=== PATIENT | female | born 1960 ===

== ENCOUNTER 2018-07-15 20:57 | Emergency (ER) | payer MEDICARE ==
[2018-07-15 21:17] VITALS: RESP 16; O2SAT 98
--- NOTE | 2018-07-15 22:17 | ED PDOC ---
HPI: Head Injury Time Seen by Provider: 07/15/18 21:21 Chief Complaint (Nursing): Trauma Chief Complaint (Provider): Head Injury History Per: Patient History/Exam Limitations: no limitations Injury Occurred (Timing): Today @ (163) Patient States: Struck With Object Additional Complaint(s): 58 year old female with hx of diabetes, HTN, and CVA present to the ED for bertha luation of a head injury. Patient states that around 0 today, an iron bar from a shelving unit fell and struck the top of her head. Initially, she notes applying ice and now there is localized pain to the area. Denies loss of consciousness, dizziness, nausea, and vomiting. PMD: Kemar Ram Past Medical History Reviewed: Historical Data, Nursing Documentation, Vital Signs Vital Signs: Last Vital Signs Temp 98.1 F 07/15/18 21:15 Pulse 76 07/15/18 21:15 Resp 16 07/15/18 21:15 BP 167/75 H 07/15/18 21:15 Pulse Ox 98 07/15/18 21:15 - Medical History PMH: CVA, Diabetes, HTN, Hypercholesterolemia - Surgical History Surgical History: (x3) - Family History Family History: States: Unknown Family Hx - Social History Current smoker - smoking cessation education provided: No Alcohol: None Drugs: Denies - Home Medications Home Medications: Ambulatory Orders Medication Instructions Recorded Atorvastatin [Lipitor] 10 mg PO DAILY 02/25/15 Cyanocobalamin/Folic AC/Vit B6 1 tab PO DAILY 02/25/15 [Folplex 2.2 Tablet] Famotidine 20 mg PO BID 02/25/15 Gabapentin [Neurontin] 400 mg PO TID 02/25/15 Gemfibrozil [Lopid] 600 mg PO BID 02/25/15 Meloxicam [Mobic] 15 mg PO DAILY 02/25/15 Metoprolol Succinate XL [Toprol XL] 100 mg PO DAILY 02/25/15 Valsartan/Hydrochlorothiazide 1 tab PO DAILY 02/25/15 [Valsartan-Hctz 80-12.5 mg Tab] Aspirin [Ecotrin] 81 mg PO DAILY #0 tabec 02/27/15 - Allergies Allergies/Adverse Reactions: Allergies Allergy/AdvReac Type Severity Reaction Status Date / Time butorphanol [From Stadol] Allergy SHORTNESS Verified 07/15/18 21:15 OF BREATH cortisone Allergy SWELLING Verified 07/15/18 21:15 diphenhydramine Allergy DIZZINESS Verified 07/15/18 21:15 [From Benadryl] ibuprofen Allergy FATIGUE Verified 07/15/18 21:15 metformin Allergy RASH Verified 07/15/18 21:15 shrimp Allergy RASH Verified 07/15/18 21:15 tramadol Allergy RASH Verified 07/15/18 21:15 Review of Systems ROS Statement: Except As Marked, All Systems Reviewed And Found Negative Constitutional: Positive for: Other (head injury) Gastrointestinal: Negative for: Nausea, Vomiting Neurological: Negative for: Dizziness, Other (loss of consciousness) Physical Exam - Reviewed Nursing Documentation Reviewed: Yes Vital Signs Reviewed: Yes - Physical Exam Appears: Positive for: No Acute Distress Head Exam: Positive for: ATRAUMATIC (but some tenderness to left temporal parietal region with mild swelling), NORMOCEPHALIC Skin: Positive for: Normal Color, Warm, Dry Eye Exam: Positive for: Normal appearance, EOMI, PERRL ENT: Positive for: Normal ENT Inspection Neck: Positive for: Normal, Painless ROM, Supple Cardiovascular/Chest: Positive for: Regular Rate, Rhythm Respiratory: Positive for: Normal Breath Sounds. Negative for: Accessory Muscle Use, Respiratory Distress Gastrointestinal/Abdominal: Positive for: Normal Exam, Soft. Negative for: Tenderness Extremity: Positive for: Normal ROM Neurologic/Psych: Positive for: Alert, Oriented (x3). Negative for: Motor/Sensory Deficits - ECG O2 Sat by Pulse Oximetry: 98 (RA) Pulse Ox Interpretation: Normal Medical Decision Making Medical Decision Making: Time: 2133 Initial Impression: 58 year old female with a head injury Initial Plan: --CT head without contrast 2244 CT head shows no intracranial abnormalities. Pt is stable for d/c with diagnosis of minor head injury and contusion. Scribe Attestation: Documented by Maricruz Tomas, acting as a scribe for Blas Marrero MD. Provider Scribe Attestation: All medical record entries made by the Scribe were at my direction and personally dictated by me. I have reviewed the chart and agree that the record accurately reflects my personal performance of the history, physical exam, medical decision making, and the department course for this patient. I have also personally directed, reviewed, and agree with the discharge instructions and disposition. Disposition - Clinical Impression Clinical Impression: Contusion of head - Patient ED Disposition Is Patient to be Admitted: No Counseled Patient/Family Regarding: Studies Performed, Diagnosis - Disposition Disposition: Routine/Home Disposition Time: 22:47 Condition: STABLE Instructions: Minor Head Injury Forms: [facility] (Upper Sorbian) Print Language: L[place]BOURGISH
[2018-07-15 23:09] VITALS: BP 140/69; PULSE 80; TEMP 98.3
--- NOTE | 2018-07-16 09:05 | CT ---
Date of service: 07/15/2018 PROCEDURE: CT HEAD WITHOUT CONTRAST. HISTORY: headache COMPARISON: 02/24/2015 TECHNIQUE: Axial computed tomography images were obtained through the head/brain without intravenous contrast. Radiation dose: Total exam DLP = 740.47 mGy-cm. This CT exam was performed using one or more of the following dose reduction techniques: Automated exposure control, adjustment of the mA and/or kV according to patient size, and/or use of iterative reconstruction technique. FINDINGS: HEMORRHAGE: No intracranial hemorrhage. BRAIN: No mass effect or edema. No atrophy or chronic microvascular ischemic change. There is a solitary nodular right frontal cortical calcification unchanged from prior examination. This is nonspecific. VENTRICLES: Unremarkable. No hydrocephalus. CALVARIUM: Unremarkable. PARANASAL SINUSES: Unremarkable as visualized. No significant inflammatory changes. MASTOID AIR CELLS: Unremarkable as visualized. No inflammatory changes. OTHER FINDINGS: None. IMPRESSION: No intracranial mass, hemorrhage or evidence of acute infarct. The preliminary findings for this examination were reported by [facility] at 11:52 p.m. on 07/15/2018. There is concurrence of this report with the preliminary findings.
== END 2018-07-15 22:50 | disposition home or self-care (01) ==
LOC: H.ER 20:57
DX: S00.93XA Contusion of unspecified part of head, initial encounter (principal); W22.8XXA Striking against or struck by other objects, initial encounter; Y92.89 Other specified places as the place of occurrence of the external cause; E11.9 Type 2 diabetes mellitus without complications; E78.00 Pure hypercholesterolemia, unspecified; I10 Essential (primary) hypertension; Z86.73 Personal history of transient ischemic attack (TIA), and cerebral infarction without residual deficits; Z79.82 Long term (current) use of aspirin